=== PATIENT | male | born 1955 | race Caucasian/White ===

== ENCOUNTER 2017-03-06 06:45 | Inpatient (IN) | payer OTHER ==
[2017-03-06] VITALS (7 sets, daily range): BP systolic 120–150; BP diastolic 60–84
[~2017-03-06] VITALS: Ht 180.3 cm; Wt 204.0 kg
--- NOTE | ~2017-03-06 | CON ---
[place], [place] REPORT OF CONSULTATION NAME: MARKO RUFF UNIT #: [id number] ROOM: 406 DOCTOR: OMAR SNIDER MD BIRTHDATE: [birth year] DOS: 03/06/2017 NEPHROLOGY CONSULTATION TIME OF SERVICE: 1500. REQUESTING PHYSICIAN: Hospitalist service. REASON FOR CONSULTATION: Acute kidney injury with hyperkalemia. HISTORY OF PRESENT ILLNESS: The patient is a 61-year-old gentleman, not previously followed at this hospital, does not reportedly follow with the lien searcher, is from the [facility] area as well as recently now in [facility]. He is visiting a girlfriend in the area and came to the hospital because of an unsteady gait and falls. His girlfriend provided some of the history as well as the patient. Overall reliability is fair, but in general, he seems to have very tangential responses. The patient states that he has chronic edema and was told in the past multiple medication changes. He has been placed on oral medications for blood pressure as well as multiple diuretics in the past. He states that recently he was restarted on his blood pressure medication, which I suspected was lisinopril. He states that he was taken off of some of the diuretics, though I do believe that these are still on board. We are consulted as his creatinine was found to be elevated at 2.45 with a blood urea nitrogen of 91 and a potassium of 6.1. No report of hemolysis was noted. So far, his KEON inhibitor has been held and he was given some IV fluids. The patient is morbidly obese with a BMI of 63 and his chest radiograph showed some possible cardiomegaly without active infiltrates. He had a lower extremity ultrasound, which he just returned from, which is negative, that we can tell. A distal peripheral arterial disease was noted. He had a carotid duplex performed as well, which showed disease, but less than 50% stenosis bilaterally. He did not have any other prior laboratories, for which to compare his renal function. He is not aware of any past history of renal dysfunction. He has chronic lower extremity edema and some stasis changes. He also takes Neurontin and was noting increasing myoclonic jerking as well, shaking episodes, especially when trying to eat and drink. He was told that these were tremors in the past. PAST MEDICAL HISTORY: Hyperlipidemia, hypertension, neuropathy, morbid obesity, sleep apnea, diabetes, B12 deficiency, vitamin D deficiency. 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 Was also an alcoholic and had not been drinking for the last 5 months. Past smoking. No other illicit drug use reported. FAMILY HISTORY: Negative for any renal failure. ALLERGIES: REPORTED ALLERGIES TO PENICILLIN. HOME MEDICATIONS: Amlodipine, aspirin, vitamin D3, B12, Lasix, gabapentin, hydrochlorothiazide, lisinopril, Actos and simvastatin. [place], [place] REPORT OF CONSULTATION NAME: MARKO RUFF UNIT #: [id number] ROOM: [facility] DOCTOR: OMAR SNIDER MD BIRTHDATE: [birth year] REVIEW OF SYSTEMS: As per the HPI, otherwise negative. PHYSICAL EXAMINATION: VITAL SIGNS: Temperature 98.2, pulse 107, respiratory rate 20, blood pressure 150/60, 98% on room air. GENERAL: The patient is age appropriate, morbidly obese, large ____ gentleman. He is not in any acute distress, but does appear somewhat dyspneic with any exertion. HEAD AND NECK: Sclerae are anicteric. Oropharynx slightly dry. He has some JVP when lying down. No audible bruit. CARDIOVASCULAR: Distant heart sounds. No audible rub. LUNGS: Decreased bilaterally with some bilateral rales. EXTREMITIES: Lower extremities have bilateral lower extremity edema, 2 to 3+. ABDOMEN: Morbidly obese. Internal visceral examination is impossible due to his habitus. SKIN: Has some stasis dermatitis and redness along the lower extremities. Capillary refill is fair. NEUROLOGIC: He has myoclonic jerking noted. Gross sensation appears intact; however, gross motor function is intact without myoclonic jerking in terms of strength bilaterally. LABORATORIES AND DIAGNOSTICS: Urine, yellow, clear, 1.025; urine protein 1+; negative blood; negative for significant glucose with bacteria. White blood cell count 9.0, hemoglobin 18.1, platelets 154. Sodium 138, potassium 6.1, chloride 106, bicarb 25, BUN 1, creatinine 2.45, glucose 108, calcium 8.5, magnesium 2.9. ProBNP 142. Albumin 3.2, lipase 186, lactic acid 1.2. Chest radiograph reviewed. Blood cultures, no growth to date. Some IV fluids were running. ASSESSMENT AND PLAN: 1. Acute kidney injury versus chronic kidney disease. Certainly, the likelihood that there is some acute injury involved here is high. I agree that this most likely would be prerenal and IV fluids have been already ordered for 125 mL per hour for 1 liter. This was completed this morning. The patient has tenuous volume status and does appear to be total body volume overloaded. He is taking orally well. No other signs and symptoms of volume depletion was noted. For now, given his hyperkalemia and acute injury, I would recommend discontinuation of his KEON inhibitor. This may have contributed to his JALEEL. Certainly, with decreased renal clearance, the gabapentin may be inducing some of his myoclonic jerking activities as well. They seem fairly mild and first just reduce his dose. My suspicion is some CKD is present and at least stage III is likely. His urinalysis otherwise did not appear to have significant amounts of proteinuria, though this was in the context of taking an KEON inhibitor. His hypertension is at fair control. I would probably recommend if labs show some improvement to resume his loop diuretic, but discontinue his thiazide diuretics and avoid dual diuretic use for him unless absolutely necessary for volume control. 2. From a diabetes standpoint, acceptable and follow up his A1c levels. 3. From an edema standpoint, as above, I think that he will need resumption of his diuretics fairly soon. Consideration to hold his [facility] may need to be [place], [place] REPORT OF CONSULTATION NAME: MARKO RUFF UNIT #: [id number] ROOM: 406 DOCTOR: OMAR SNIDER MD BIRTHDATE: [birth year] done as well as this may be coupling with chronic venous insufficiency for him. Ideally, outpatient prior laboratories will be helpful in this situation and further imaging will be necessary in the meantime, especially if there is no significant improvement in his renal function. OMAR SNIDER MD CM:CONSTR:REPORT OF CONSULTATION 2041 03/07/17 0657 interface
--- NOTE | ~2017-03-06 | CON ---
[place], [place] REPORT OF CONSULTATION NAME: MARKO RUFF UNIT #: [id number] ROOM: 406 DOCTOR: FRANSISCO CERVANTES DPM BIRTHDATE: [birth year] DOS: 03/06/2017 SUBJECTIVE: This patient is seen and is consulted for care of elongated thick toenails on both feet as well as evaluation of lower extremity swelling. He also has a wound on the top of his right second toe that has been there about a month. He states he has been putting antibiotic ointment on it at home. He has not seen a doctor for this. He is diabetic. He has history of chronic lower extremity swelling. He states he does get some calf pain at times, but he states his legs are really swollen and was subsequently admitted. PAST MEDICAL HISTORY: Positive for chronic venous insufficiency with edema bilaterally, diabetes mellitus, hypertension, morbid obesity, diabetic neuropathy. His current medications include Zocor, Neurontin, insulin, Actos, Norvasc, 81 mg aspirin, heparin and Tylenol. ALLERGIES: PENICILLIN. OBJECTIVE: Upon lower extremity physical examination, pedal pulses are unable to be palpated secondary to significant dependent edema bilaterally. He does have some mild pain with compression of the calf, left slightly worse than right. There is probably 3+ pitting edema noted both feet, ankles, and lower legs. Chronic pigment changes are seen. Absent hair growth is seen. Skin temperature is cool at the feet. There is a purplish color to both feet at this time. I do not see any necrotic tissue at this time. Sensation appears to be decreased and symmetrical bilaterally consistent with neuropathy. No signs of muscle atrophy. He does have contracture of lesser digits seen. No pain noted to palpation on range of motion. Nails 1 through 5 bilaterally are extremely brittle, elongated, thick, dystrophic with subungual debris present. There is an open wound noted dorsal portion of the right second toe, which appears to be more of a seizure. It is full thickness up to subcutaneous tissue at this time. There are no signs of infection, no purulent drainage or malodor. No erythema or increased temperature seen, no signs of abscess. ASSESSMENT: 1. Chronic venous insufficiency with edema bilaterally, rule out deep venous thrombosis. 2. Diabetes mellitus with diabetic ulcer, right second toe, evaluate for PAD. 3. Onychomycosis 1 through 5 bilaterally. PLAN: Consult is performed. I discussed with the patient. He has significant edema in both lower extremities. I am going to order a venous Doppler to rule out a DVT. Also going to order arterial Doppler to evaluate for underlying peripheral arterial disease. I will order wound care to the ulcer with Bactroban and dressing daily. Manual debridement of mycotic nails 1 through 5 bilaterally in length and thickness to the level of the nail bed to reduce such infection. We will follow up with the patient tomorrow for reevaluation. Thank you for the opportunity to take part in care of this patient. [place], [place] REPORT OF CONSULTATION NAME: MARKO RUFF UNIT #: [id number] ROOM: 406 DOCTOR: FRANSISCO CERVANTES DPM BIRTHDATE: [birth year] FRANSISCO CERVANTES DPM CM:CONSTR:REPORT OF CONSULTATION 1221 03/06/17 1321 interface
--- NOTE | ~2017-03-06 | PR ---
[place], [place] PROGRESS NOTE NAME: [facility]FF [id number] UNIT #: [id number] ROOM: 406 DOCTOR: ANDI ALCANTAR DPM BIRTHDATE: [birth year] DOS: 03/07/2017 SUBJECTIVE: The patient was seen for followup of ulcerations with venous insufficiency, venous stasis both lower extremities. OBJECTIVE: Venous insufficiency, edema bilateral lower extremity, pedal pulses nonpalpable, +3 pitting edema. Skin temperature is cold to both feet. Lack of hair growth. Decreased sensations bilateral. Second right toe ulceration, full thickness to subcutaneous tissue level. No signs of abscess or infection. Results of the venous Doppler of bilateral lower extremity revealed no evidence of DVT. Results of arterial Doppler bilateral, however, revealed bilateral superficial femoral artery stenosis, may be occlusion at the distal left femoral artery. Both superficial femoral arteries are poorly seen distally, bilateral popliteal and tibial disease, stenotic and occlusive left much more than right. ASSESSMENT: Peripheral vascular disease; possible occlusion and stenosis; venous insufficiency; bilateral lower extremity ulceration, second right toe. PLAN: Evaluation and management, had a long discussion with the patient that he is not a candidate for Unna boot applications. We will continue Bactroban dressings daily to the ulceration with Tubigrip bilateral. Consult Dr. Howe for vascular consultation, discussed this with the patient. I think the patient needs a vascular intervention due to the findings. The patient will be seen for followup accordingly. ANDI ALCANTAR DPM CM:OMI 1225 1250 ANDI ALCANTAR DPM 03/07/17 1250 interface
--- NOTE | 2017-03-06 07:12 | NUR ---
PT UNABLE TO PROVIDE UA FOR SPECIMIN. AGREES TO CATHETER. PT IS OBESE AND TELLS ME FALLS ALOT AND IS VERY POOR HISTORIAN.
[2017-03-06 07:25] LABS: BASO # 0.1 10*3/uL (0.0-0.1); BASO % 0.9 % (0.0-1.0); EOS # 0.2 10*3/uL (0.0-0.4); EOS % 2.3 % (1.0-4.0); HEMATOCRIT 59.2 % (42.0-52.0); HEMOGLOBIN 18.1 g/dl (14.0-18.0); LYMPH # 1.3 10*3/uL (1.3-4.4); LYMPH % 13.8 % (27.0-41.0); MEAN CELL VOLUME 93.1 fl (80.0-94.0); MEAN CORPUSCULAR HGB 28.5 pg (27.0-31.0); MEAN CORPUSCULAR HGB CONC 30.6 g/dl (33.0-37.0); MEAN PLATELET VOLUME 11.7 fl (9.6-12.3); MONO # 0.7 10*3/uL (0.1-1.0); MONO % 7.8 % (3.0-9.0); NEUT # 6.8 10*3/uL (2.3-7.9); NEUT % 74.9 % (47.0-73.0); NUCLEATED RED BLOOD CELL 0.4 % (0.0-0.0); PLATELET COUNT AUTOMATED 154 10*3/uL (130-400); RED BLOOD COUNT 6.36 10*6/uL (4.50-5.90)
--- NOTE | 2017-03-06 07:26 | NUR ---
DURIUNG CATH PROCEDURE PT ABDOMEN AND SUPRAPUBIC AREA NOTED TO BE VERY CELLULITIC IN APPEARANCE AND MALODOROUS.
[2017-03-06 07:34] LABS: BILIRUBIN NEGATIVE (NEGATIVE); BLOOD NEGATIVE (NEGATIVE); CLARITY CLEAR (CLEAR); COLOR YELLOW (YELLOW); GLUCOSE NEGATIVE (NEGATIVE); KETONE NEGATIVE (NEGATIVE); LEUKO ESTERASE NEGATIVE (NEGATIVE); NITRITE NEGATIVE (NEGATIVE); SPECIFIC GRAVITY 1.025 (1.005-1.030); UROBILINOGEN 0.2 E.U./dl (0.2-1.0)
[2017-03-06 07:34] LABS: ACT PARTIAL THROMBO TIME 25.3 SECONDS (20.8-31.5); INTERNATIONAL NORM RATIO 1.1 (2.0-3.5)
[2017-03-06 07:42] LABS: BACTERIA TRACE
[2017-03-06 07:44] LABS: ALBUMIN 3.2 gm/dl (3.1-4.5); ALKALINE PHOSPHATASE 65 U/L (45-117); BUN 91 mg/dl (7-24); CHLORIDE 106 mmol/L (98-107); CKMB 2.6 ng/ml (0.5-3.6); CPK 88 U/L (39-308); CREATININE 2.45 mg/dL (0.70-1.30); LIPASE 186 U/L (73-393); MAGNESIUM 2.9 mg/dL (1.5-2.1); SGOT/AST 15 IU/L (3-35); SGPT/ALT 21 U/L (12-78); SODIUM 138 mmol/L (136-145)
[2017-03-06 07:45] LABS: POTASSIUM 6.1 mmol/L (3.5-5.1); TROPONIN I < 0.015 ng/ml (<0.045)
--- NOTE | 2017-03-06 08:23 | NUR ---
PT SITTING UP IN BED, VISITING WITH FRIEND AT BEDSIDE.
--- NOTE | 2017-03-06 09:00 | NUR ---
A 61YO MALE, admitted to , under the services of STEPHANE Sanchez DO with a diagnosis of ACUTE RENAL FAILURE/DEHYDRATION/UNSTEADY GAIT. Chief complaint is JERKING MOVEMENTS AND DIFFICULTY WALKING/FELL AT HOME. Patient arrived via stretcher from ER. Monitor applied. Initial assessment completed. Vital signs taken and recorded. STEPHANE SANCHEZ DO notified of admission to the unit. Orders received. See assessment for past medical history, medications and allergies. Patient and/or family oriented to unit. [facility] visitation policy reviewed. Clothing/patient valuable form completed. KYE LAN
[2017-03-06] MEDS ORDERED: ZOCOR20 MG PO (09:51)
[2017-03-06] MEDS ORDERED: ACTOS45 M1 PO (09:52)
[2017-03-06] MEDS ORDERED: LASIX80 MG PO (09:52)
[2017-03-06] MEDS ORDERED: NEURONTIN300 MG PO (09:52)
[2017-03-06] MEDS ORDERED: NORVASC5 MG PO (09:53)
[2017-03-06] MEDS ORDERED: ASPIRIN ADULT L81 MG PO (09:54)
[2017-03-06] MEDS ORDERED: VITAMIN D32000 UNIT PO (09:56)
[2017-03-06] MEDS ORDERED: VITAMIN B121000 MC1 PO (09:56)
[2017-03-06] MEDS ORDERED: LISINOPRIL20 MG PO (09:58)
[2017-03-06] MEDS ORDERED: HYDR25T PO (09:59)
--- NOTE | 2017-03-06 10:00 | NUR ---
DR MOISE NOTIFIED THAT ALL MEDS WERE VERIFIED WITH BOTTLES
--- NOTE | 2017-03-06 10:19 | NUR ---
CALLED DR SARKAR'S OFFICE FOR CONSULT
--- NOTE | 2017-03-06 11:45 | NUR ---
CONSULT CALLED TO [facility] FOR DR ALCANTAR. WAS ADVISED THAT DR CERVANTES IS HERE AND WILL BE UP TO SEE THE PATIENT. ALSO CALLED CONSULT TO DR SETHI. LEFT MESSAGE WITH NURSE.
--- NOTE | 2017-03-06 20:00 | NUR ---
ASSUMED CARE OF PATIENT. ASSESSMENT COMPLETE. RESTING IN BED. NO VOICED COMPLAINTS. CALL LIGHT IN REACH. WILL CONTINUE TO MONITOR.
--- NOTE | 2017-03-06 22:15 | NUR ---
CALLED AND SPOKE TO DR VASUQEZ REGARDING PT WANTING MENDEZ CATHETER REMOVED. MENDEZ PLACED IN ER, NO ORDER ON FLOOR. DR FIGUEREDO STATES HE WANTS THE MENDEZ LEFT IN AT THIS TIME.
[2017-03-07] VITALS: BP 139/86
--- NOTE | 2017-03-07 02:46 | NUR ---
SLEEPING. RESP EASY AND NONLABORED ON 3L NC. NO DISTRESS NOTED. CM INTACT. ANDREA PATENT. CALL LIGHT IN REACH. WILL CONTINUE TO MONITOR.
[2017-03-07 06:08] LABS: BILIRUBIN NEGATIVE (NEGATIVE); BLOOD 3+ (NEGATIVE); CLARITY CLOUDY (CLEAR); COLOR RED (YELLOW); GLUCOSE NEGATIVE (NEGATIVE); KETONE NEGATIVE (NEGATIVE); LEUKO ESTERASE 1+ (NEGATIVE); NITRITE NEGATIVE (NEGATIVE); UROBILINOGEN 0.2 E.U./dl (0.2-1.0)
[2017-03-07 06:15] LABS: RBC TNTC rbc/hpf (0-2)
[2017-03-07 08:00] VITALS: BP 121/91
[2017-03-07 08:13] LABS: BASO # 0.1 10*3/uL (0.0-0.1); BASO % 0.9 % (0.0-1.0); EOS # 0.2 10*3/uL (0.0-0.4); EOS % 2.3 % (1.0-4.0); HEMATOCRIT 59.4 % (42.0-52.0); HEMOGLOBIN 18.2 g/dl (14.0-18.0); LYMPH # 1.3 10*3/uL (1.3-4.4); MEAN CELL VOLUME 92.2 fl (80.0-94.0); MEAN CORPUSCULAR HGB 28.3 pg (27.0-31.0); MEAN CORPUSCULAR HGB CONC 30.6 g/dl (33.0-37.0); MEAN PLATELET VOLUME 11.5 fl (9.6-12.3); MONO # 0.9 10*3/uL (0.1-1.0); MONO % 9.2 % (3.0-9.0); NEUT # 6.9 10*3/uL (2.3-7.9); NEUT % 73.4 % (47.0-73.0); NUCLEATED RED BLOOD CELL 0.2 % (0.0-0.0); PLATELET COUNT AUTOMATED 158 10*3/uL (130-400); RED BLOOD COUNT 6.44 10*6/uL (4.50-5.90); RED CELL DISTRI WIDTH 19.2 % (0-14.5); WHITE BLOOD COUNT 9.4 10*3/uL (4.8-10.8)
[2017-03-07 08:52] LABS: ALBUMIN 3.3 gm/dl (3.1-4.5); MAGNESIUM 2.7 mg/dL (1.5-2.1); POTASSIUM 5.6 mmol/L (3.5-5.1); TOTAL PROTEIN 8.1 gm/dL (6.4-8.2)
[2017-03-07 08:58] LABS: CREATININE 1.78 mg/dL (0.70-1.30); PHOSPHOROUS 2.8 mg/dL (2.5-4.9); THYROID STIM HORMONE (HS) 3.48 uIU/ml (0.358-4.75)
--- NOTE | 2017-03-07 09:00 | NUR ---
Supervisor Telephone Clerks in to talk to patient. Patient states lives at home with sister. There are no steps in the home. Physician: none at present Pharmacy: none at present Home health services: none Patient's level of ADLs: MINIMAL ASSIST Patient has working utilities: all working DME: none Follow-up physician's appointment after d/c: will be made by hospitalist nurse director upon discharge Does patient want to access PORTAL?: no Discharge plan discussed with patient, patient stated he moved [place] from out of state and is living with his sister, he doesn't have a primary care physician or pharmacy, patient will be given a list of doctors to chose from, patient states he gets around fine, patient denies any home needs at this time, case management will follow. AI ZAFAR
--- NOTE | 2017-03-07 09:09 | NUR ---
PHYSICAL THERAPY PAtient requests no PT at this time. Thank you for this referral. Gila Wallace,PT
--- NOTE | 2017-03-07 10:22 | NUR ---
O2 SAT 88% RA AT REST. SAT 92% AT REST WITH 3L/M NC APPLIED. RN INFORMED. DR. VALENTE.
[2017-03-07 11:07] LABS: VITAMIN D, 25-HYDROXY 38.2 ng/mL (30-100)
--- NOTE | 2017-03-07 11:30 | NUR ---
ATTEMPTED TO SEE PT FOR OT EVAL THIS AM. PT DECLINED OT EVAL AT THIS TIME, STATING HE MAY BE LEAVING THIS AFTERNOON. SS NOTIFIED.
--- NOTE | 2017-03-07 11:31 | NUR ---
PHYSICAL THERAPY PAtient reports he is leavng this afternoon. Gila Wallace,PT
--- NOTE | 2017-03-07 12:06 | NUR ---
MARKO RUFF [id number] Please refer to the physician's history and physical for past medical history, comorbid conditions, and allergies. Diagnosis: ACUTE RENAL FAILURE,UNSTEADY GAIT,DEHYDRATION,HYPE Jose A Score: 17,AT RISK WOUND DESCRIPTIONS: Location of the wound: right second toe Type of wound: unstageable Thickness: Full Size: 2.0cm x0.4cm x 0.2cm Tunneling: none Undermining: none Sinus Tract: none Presence of Exudate: Purulent Amount: Light Color: Yellow Odor: Musty Periwound Skin Appearance: Edema Wound edges: approximated Pain (associated with wound): none at time of assessment How does patient state this happened? pt stated he dropped a remote on it last week and developed this wound. Unable to palpate pedal pulse due to edema. Staining noted to BLE. BLE purple in color. Patient stated he always were compression wraps and he wants his legs wrapped. This nurse explain based off of his lab results that the podiatry doctor will more than likely not wrap his legs. He stated that is the only that that works and I don't want any other kind of treatment. Location of the wound: left posterior calf Thickness: Partial Size: 3.5cm x 0.5cm x 0.1cm Tunneling: none Undermining: none Sinus Tract: none Presence of Exudate: serosanguineous Amount: Light Color: Red Odor: Musty Periwound Skin Appearance: Firmness, staining Wound edges: approximated Pain (associated with wound): none at time of assessment How does patient state this happened? Patient is unsure how this happened but stated had to be recently because they weren't there a while ago. Surface the patient is resting on: Rental SKIN PREVENTION RECOMMENDATION: 1. Pressure redistribution support surface as appropriate 2. Elevate heels 3. Remove boots/TEDS every shift and reapply 4. Head of bed 30 degrees as tolerated 5. Assess nutrition and hydration 6. Manage moisture 7. Avoid the use of containment devices while in bed 8. Use absorptive products on surfaces limit layers of linens on bed 9. Turn and reposition every 1-2 hours in bed and every 1 hour in chair as tolerated 10. Weight shifts every 15 minutes while up in chair 11. Offloading with pillows or device to keep heels elevated off bed 12. Monitor skin at least every shift 13. Inspect under medical devices twice a day WOUND TREATMENT RECOMMENDATIONS: Consult podiatry.
--- NOTE | 2017-03-07 14:58 | NUR ---
DR. RUBIN NOTIFIED OF CONSULT.
--- NOTE | 2017-03-07 15:01 | NUR ---
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 DR. MOISE NOTIFIED.
--- NOTE | 2017-03-07 15:45 | NUR ---
PT LEFT AMA
== END 2017-03-07 15:45 | disposition left against medical advice (07) | DRG 683 ==
LOC: ED 06:45 → EDHOLD 08:28 → 4E 08:28
PROVIDERS: Emergency Medicine; Internal Medicine Nephrology; ADMIT Internal Medicine
DX: N17.0 Acute kidney failure with tubular necrosis (principal); R65.10 Systemic inflammatory response syndrome (SIRS) of non-infectious origin without acute organ dysfunction; E11.21 Type 2 diabetes mellitus with diabetic nephropathy; E11.51 Type 2 diabetes mellitus with diabetic peripheral angiopathy without gangrene; Z68.45 Body mass index [BMI] 70 or greater, adult; E86.0 Dehydration; E66.2 Morbid (severe) obesity with alveolar hypoventilation; E83.41 Hypermagnesemia; R94.2 Abnormal results of pulmonary function studies; R26.81 Unsteadiness on feet; E87.5 Hyperkalemia; D75.1 Secondary polycythemia; B35.1 Tinea unguium; I10 Essential (primary) hypertension; E78.5 Hyperlipidemia, unspecified; E53.8 Deficiency of other specified B group vitamins; I87.2 Venous insufficiency (chronic) (peripheral); M17.0 Bilateral primary osteoarthritis of knee; M79.3 Panniculitis, unspecified; Z88.0 Allergy status to penicillin; Z87.891 Personal history of nicotine dependence; Z80.1 Family history of malignant neoplasm of trachea, bronchus and lung; Z83.6 Family history of other diseases of the respiratory system; Z53.21 Procedure and treatment not carried out due to patient leaving prior to being seen by health care provider; W19.XXXA Unspecified fall, initial encounter; Y93.89 Activity, other specified; Y92.89 Other specified places as the place of occurrence of the external cause; Y99.8 Other external cause status; R29.6 Repeated falls; L97.519 Non-pressure chronic ulcer of other part of right foot with unspecified severity; E11.65 Type 2 diabetes mellitus with hyperglycemia; E11.621 Type 2 diabetes mellitus with foot ulcer